=== PATIENT | female | born 1950 | race Caucasian/White ===

== ENCOUNTER 2017-12-21 13:46 | Day surgery (SDC) | payer MEDICARE ==
[~2017-12-21 13:46] MED LIST: CITA20TA4 PO; LISI-360 PO; LORA-474 PO; PERC10TA27 PO; REVL25CA OR
[2017-12-21 14:04] VITALS: BP 178/99; PULSE 62; RESP 20; TEMP 98.3; O2SAT 97
--- NOTE | 2017-12-21 14:57 | RADRPT ---
EXAM DATE/TIME: 12/21/2017 00:00 [facility] COMPARISON : No previous studies available for comparison. INDICATIONS : consult for kyphoplasty OBJECTIVE: Temperature: 98.3 Heart Rate: 62 Blood Pressure: 178/99 Respiratory: 20 Oximetry: 97% PNEUMONIA VACCINE: YES HISTORY OF PRESENT ILLNESS: Modesta is a very pleasant 67-year-old female who presents with progressive severe debilitating lower l umbar pain. She has a history of rectal CA diagnosed in 2010 in remission and multiple myeloma which is well managed. She does not recall a specific event although nodes pain has been significantly wors ening in the past 2 months. She has classic symptoms of pain with ambulation and axial loading reliev ed by supine positioning. She is currently taking oxycodone which she states helped with moderate imp rovement. She rates the pain as 10/10 without medication. Pain has not improved despite this prolonge d nonoperative course of management. She denies any significant new radiculopathy or bowel/urinary in continence. PAST MEDICAL HISTORY : 1. Carcinoma, rectal. 2. Hypertension. 3. Osteoarthritis. 4. multiple myeloma 5. anxiety/depression PAST SURGICAL HISTORY : 1. port placement/removal 2. stem cell transplant 3. polypectomy 4. left breast biopsy SOCIAL HISTORY : No alcohol use. Tobacco; Patient has a ALLERGIES: 1. Sulfarash/hives MEDICATIONS: 1. Prinivil (Lisinopril) 10 mg q.d. 2. mvi q.d. revlamid 10 mg q.d. oxycodone 7.5 mg q.i.d. PHYSICAL EXAMINATION: General: No acute distress Neurological: Grossly intact Back: Mild tenderness on palpation of the L1 and L3 spinous processes IMAGING STUDIES: MRI examination from 12/12/2017 is reviewed. This demonstrates moderate compression deformity at L1 wit h diffuse marrow edema in the superior endplate. There is also subtle bone marrow edema along the inf erior endplate of L3 which in retrospect is also consistent with fracture. ASSESSMENT: 67-year-old female with history of multiple myeloma and subacute debilitating L1 and L3 compression f ractures. She has not improved with prolonged course of nonoperative management. She would be an exce llent candidate for cement augmentation. Kyphoplasty procedure was explained in detail and all questions were answered. PLAN: L1 and L3 kyphoplasty. TIME SPENT: 20 minutes. Nick Good MD on December 21, 2017 at 14:48 Board Certified Radiologist. This report was verified electronically.
== END 2017-12-21 14:54 | disposition home or self-care (01) ==
LOC: HROP 13:46 → HRIP 13:46 → HROP 14:54
PROVIDERS: ATTEND Internal Medicine Hematology & Oncology
DX: M48.56XA Collapsed vertebra, not elsewhere classified, lumbar region, initial encounter for fracture (principal); C90.00 Multiple myeloma not having achieved remission

== ENCOUNTER 2017-12-25 08:47 | Day surgery (SDC) | payer MEDICARE ==
[~2017-12-25] VITALS: Ht 161.3 cm; Wt 48.6 kg
[2017-12-25 09:00] VITALS: BP 191/91; PULSE 68; RESP 20; TEMP 98.2; O2SAT 95
[2017-12-25] MEDS ORDERED: PERC10TA27 PO (09:04)
[2017-12-25] MEDS ORDERED: LORA1TAB12 PO (09:04)
[2017-12-25] MEDS ORDERED: LISI-515 PO (09:04)
[2017-12-25] MEDS ORDERED: LENA10CA (09:04)
[2017-12-25] MEDS ORDERED: ceFAZolin 2 GM PREMIX 50 ML IV SCH (09:15)
[2017-12-25] MEDS ORDERED: SODIUM CHLORID 0.9% 500 ML IV PRN (09:15)
[2017-12-25] MEDS ORDERED: SODIUM CHLOR 0.9% 1000 ML INJ 1,000 ML IV SCH (09:15)
[2017-12-25] MEDS ORDERED: LACTATED RINGER'S 1000 ML IV PRN (09:15)
[2017-12-25 09:28] LABS: AUTOMATED NEUTROPHIL # 2.3 TH/MM3 (1.8-7.7); BASOPHIL % 0.5 % (0.0-2.0); EOSINOPHIL # 0.1 TH/MM3 (0-0.4); EOSINOPHIL % 2.5 % (0.0-4.0); HEMATOCRIT 34.2 % (35.0-46.0); HEMOGLOBIN 12.2 GM/DL (11.6-15.3); LYMPH % 22.2 % (9.0-44.0); LYMPHOCYTE # 0.8 TH/MM3 (1.0-4.8); MEAN CELL VOLUME 97.8 FL (80.0-100.0); MEAN CORPUSCULAR HEMOGLOBIN 34.9 PG (27.0-34.0); MEAN CORPUSCULAR HGB CONC 35.7 % (32.0-36.0); MEAN PLATELET VOLUME 7.7 FL (7.0-11.0); MONO % 14.8 % (0.0-8.0); MONOCYTE # 0.6 TH/MM3 (0-0.9); PLATELET COUNT 180 TH/MM3 (150-450); RED CELL DISTRIBUTION WIDTH 14.4 % (11.6-17.2); WHITE BLOOD COUNT 3.8 TH/MM3 (4.0-11.0)
[2017-12-25 09:43] LABS: BICARBONATE 26.9 MEQ/L (21.0-32.0); CALCIUM 9.2 MG/DL (8.5-10.1); CREATININE 0.6 MG/DL (0.50-1.00)
[2017-12-25] MEDS ORDERED: BUPIVACAINE HCL PF 0.75% 30 ML VIAL ONE (10:27)
[2017-12-25] MEDS ORDERED: MIDAZOLAM HCL 2 MG/2 ML VIAL ONE ×4 (10:29→11:10)
[2017-12-25] MEDS ORDERED: fentaNYL CITRATE 250 MCG/5 ML AMP ONE (10:29)
--- NOTE | 2017-12-25 11:58 | PD.RAD ---
Post Procedure Progress Note Pre Procedure Diagnosis: (1) Compression deformity of vertebra Post Procedure Diagnosis: (1) Compression deformity of vertebra Procedure Date: Dec 25, 2017 Supervising Radiologist: Nick Good Proceduralist/Assist: Go Villegas RT(R), Yeimy Sharp RT(R) Anesthesia: Conscious Sedation Plan of Activity Patient to Unit: ROPU Patient Condition: Good See PACS Report for procedural detail/treatment Nick Good MD Dec 25, 2017 11:58
[2017-12-25 12:05] VITALS: BP 160/95; PULSE 71; RESP 18; TEMP 98.8; O2SAT 92
[2017-12-25 12:20] VITALS: BP 145/78; PULSE 66; RESP 16; O2SAT 100
[2017-12-25 12:50] VITALS: BP 134/81; PULSE 64; RESP 16; O2SAT 100
[2017-12-25 13:20] VITALS: BP 152/75; PULSE 63; RESP 18; O2SAT 100
--- NOTE | 2017-12-25 13:47 | RADRPT ---
EXAM DATE/TIME: 12/25/2017 10:25 [facility] COMPARISON: No previous studies available for comparison. INDICATIONS : History multiple myeloma with subacute dilatation L1 and L3 compression fractures. MEDICAL HISTORY : Multiple myloma Rectal cancer Anxiety Depression, HTN SURGICAL HISTORY : Biopsies Port placement Port removal ENCOUNTER: Initial ACUITY: 2 months PAIN SCORE: 5/10 LOCATION: lower back FLUORO TIME: 10.1 minutes IMAGE SERIES: 8 SEDATION TIME: 50 minutes LEVEL: L1 and L3 1.) 6.5 mg midazolam (Versed) IV 2.) 375 mg fentanyl (Sublimaze) IV PROCEDURE : 1. Fluoroscopically-guided L1 and L3 kyphoplasty. 2. Conscious sedation with continuous EKG and oximetry monitoring. The risks, benefits and alternatives to the procedure were explained and verbal and written consent w as obtained. The site was prepped in sterile fashion. Full sterile technique was used, including ca p, mask, sterile gloves and gown and a large sterile sheet. Hand hygiene and 2% chlorhexidine and/or betadine/alcohol prep was utilized per protocol for cutaneous antisepsis. The skin and subcutaneous tissues were infiltrated with local anesthetic solution. With fluoroscopic guidance via the above described approach access was gained to the vertebral body. Kyphoplasty was performed with cavity creation as above. The prescribed cement volume was placed. Post procedure images demonstrate cement confined to the vertebral body. Conscious sedation was performed with the prescribed dosages and duration as above in the presence of an independent trained radiology nurse to assist in the monitoring of the patient. EKG and oximetry remained stable throughout the procedure. The patient tolerated the procedure well and there were n o complications. The patient was sent to post anesthesia recovery in stable condition. CONCLUSION: 1. Uncomplicated L1 and L3 kyphoplasty, as above. Nick Good MD on December 25, 2017 at 13:45 Board Certified Radiologist. This report was verified electronically.
[2017-12-25] MEDS ORDERED: oxyCODONE/ACETAMINOPHEN 5 MG/325 MG TAB PO ONE (14:00)
[2017-12-25 14:20] VITALS: BP 158/80; PULSE 68; RESP 18; O2SAT 95
--- NOTE | 2017-12-25 18:43 | EKG ---
Date Performed: 12/25/2017 Time Performed: 09:23:43 PTAGE: 67 years EKG: Sinus rhythm POSSIBLE LEFT ATRIAL ENLARGEMENT LEFT VENTRICULAR HYPERTROPHY AND ST-T CHANGE ABNORMAL ECG Since the prior tracing, there has been no significant change PREVIOUS TRACING : 09/14/2011 11.17 DOCTOR: Renata Cameron Interpretating Date/Time 12/25/2017 18:41:27
== END 2017-12-25 14:28 | disposition home or self-care (01) ==
LOC: HROP 08:47 → HRIP 08:50 → HROP 14:28
PROVIDERS: ATTEND Radiology Diagnostic Radiology
DX: S32.019A Unspecified fracture of first lumbar vertebra, initial encounter for closed fracture (principal); S32.039A Unspecified fracture of third lumbar vertebra, initial encounter for closed fracture; C90.00 Multiple myeloma not having achieved remission; I10 Essential (primary) hypertension; Z85.048 Personal history of other malignant neoplasm of rectum, rectosigmoid junction, and anus; Z01.810 Encounter for preprocedural cardiovascular examination; Z01.818 Encounter for other preprocedural examination
CPT/HCPCS: 22514; 22515; 80048; 85025; 85610; 85730; 93005; 99152; 99153; J0690; J2250; J3010; J7030

== ENCOUNTER 2018-01-08 15:34 | Day surgery (SDC) | payer MEDICARE ==
[~2018-01-08 15:34] MED LIST changes: -CITA20TA4 PO; +LENA10CA; -LISI-360 PO; +LISI-515 PO; -LORA-474 PO; +LORA1TAB12 PO; -REVL25CA OR
[2018-01-08 16:09] VITALS: BP 152/88; PULSE 73; RESP 20; TEMP 97.3; O2SAT 97
--- NOTE | 2018-01-10 10:03 | RADRPT ---
EXAM DATE/TIME: 01/08/2018 16:24 [facility] COMPARISON : INDICATIONS : Follow up Kypho OBJECTIVE: Temperature: 97.3 Heart Rate: 73 Blood Pressure: 152/88 Respiratory: 20 Oximetry: 97 PNEUMONIA VACCINE: HISTORY OF PRESENT ILLNESS: 67-year-old female with history of rectal CA and multiple myeloma, both in remission, with debilitati ng L1 and L3 compression fractures. Patient is postop day #14 following L1 and L3 kyphoplasties. Alth ough she reports little improvement in her pain, she admits that she has significantly improved mobil ity and the nature of her pain is now different. She reports pain on initiating movement which improv es following activity. She is able to bend at the waist without significant difficulty. Denies any ra diculopathy or bowel/urinary incontinence. PHYSICAL EXAMINATION: General: No acute distress Neuro: Grossly intact Back: No significant tenderness on palpation of the spinous processes. ASSESSMENT: 67-year-old female status post L1 and L3 kyphoplasties with persistent lower back pain which appears to be facet joint related. PLAN: Will obtain an MRI of the lumbar spine to insure she has not developed in interval adjacent level com pression fracture and reassess the facet joints. Tentative plan for therapeutic facet joint injection s. TIME SPENT: 30 minutes Nick Good MD on January 10, 2018 at 9:48 Board Certified Radiologist. This report was verified electronically.
== END 2018-01-08 16:50 | disposition home or self-care (01) ==
LOC: HROP 15:34 → HRIP 15:35 → HROP 16:50
PROVIDERS: ATTEND Radiology Diagnostic Radiology
DX: S32.019D Unspecified fracture of first lumbar vertebra, subsequent encounter for fracture with routine healing (principal); S32.039D Unspecified fracture of third lumbar vertebra, subsequent encounter for fracture with routine healing; W19.XXXD Unspecified fall, subsequent encounter; C90.01 Multiple myeloma in remission; I10 Essential (primary) hypertension; Z85.048 Personal history of other malignant neoplasm of rectum, rectosigmoid junction, and anus

== ENCOUNTER 2018-01-16 06:35 | Day surgery (SDC) | payer MEDICARE ==
[~2018-01-16] VITALS: Ht 160 cm; Wt 48.0 kg
[~2018-01-16 06:35] MED LIST changes: -LENA10CA; +LENA10CA PO
[2018-01-16 07:00] VITALS: BP 144/75; PULSE 65; RESP 18; TEMP 98.3; O2SAT 96
[2018-01-16 07:23] LABS: AUTOMATED NEUTROPHIL # 2.2 TH/MM3 (1.8-7.7); BASOPHIL % 0.7 % (0.0-2.0); EOSINOPHIL % 0.6 % (0.0-4.0); HEMATOCRIT 33.5 % (35.0-46.0); HEMOGLOBIN 11.8 GM/DL (11.6-15.3); LYMPH % 18.7 % (9.0-44.0); LYMPHOCYTE # 0.7 TH/MM3 (1.0-4.8); MEAN CELL VOLUME 97.1 FL (80.0-100.0); MEAN CORPUSCULAR HEMOGLOBIN 34.2 PG (27.0-34.0); MEAN CORPUSCULAR HGB CONC 35.2 % (32.0-36.0); MEAN PLATELET VOLUME 7.1 FL (7.0-11.0); MONO % 18.6 % (0.0-8.0); MONOCYTE # 0.7 TH/MM3 (0-0.9); NEUT % 61.4 % (16.0-70.0); PLATELET COUNT 241 TH/MM3 (150-450); RED BLOOD COUNT 3.45 MIL/MM3 (4.00-5.30); RED CELL DISTRIBUTION WIDTH 13.9 % (11.6-17.2); WHITE BLOOD COUNT 3.6 TH/MM3 (4.0-11.0)
[2018-01-16 07:30] LABS: PROTHROMBIN TIME - PATIENT 10.3 SEC (9.8-11.6)
[2018-01-16] MEDS ORDERED: IMPLANTED VASCULAR ACCESS PORT - SODIUM CHLORIDE FLUSH IV FLUSH SCH (07:30)
[2018-01-16] MEDS ORDERED: SODIUM CHLOR 0.9% 1000 ML INJ 1,000 ML IV SCH (07:30)
[2018-01-16] MEDS ORDERED: ceFAZolin 2 GM PREMIX 50 ML IV SCH (07:30)
[2018-01-16] MEDS ORDERED: fentaNYL CITRATE 250 MCG/5 ML AMP ONE (07:44)
[2018-01-16] MEDS ORDERED: MIDAZOLAM HCL 5 MG/5 ML VIAL ONE (07:44)
[2018-01-16] MEDS ORDERED: MIDAZOLAM HCL 2 MG/2 ML VIAL ONE (08:43)
[2018-01-16 09:25] VITALS: BP 121/75; PULSE 68; RESP 18; TEMP 98.1; O2SAT 98
[2018-01-16 09:40] VITALS: BP 121/57; PULSE 54; RESP 18; O2SAT 93
--- NOTE | 2018-01-16 09:53 | PD.RAD ---
Post Procedure Progress Note Pre Procedure Diagnosis: (1) Compression deformity of vertebra Post Procedure Diagnosis: (1) Compression deformity of vertebra Procedure Date: Jan 16, 2018 Supervising Radiologist: Nick Good Proceduralist/Assist: Go Villegas RT(R), RT Godwin(R) Anesthesia: Conscious Sedation Plan of Activity Patient to Unit: ROPU Patient Condition: Good See PACS Report for procedural detail/treatment Nick Good MD Jan 16, 2018 09:53
[2018-01-16 09:55] VITALS: BP 113/68; PULSE 68; RESP 16; O2SAT 98
[2018-01-16 10:25] VITALS: BP 106/69; PULSE 68; RESP 16; O2SAT 97
--- NOTE | 2018-01-16 11:41 | RADRPT ---
EXAM DATE/TIME: 01/16/2018 06:45 [facility] COMPARISON: KYPHOPLASTY, FLUORO GUIDED, December 25, 2017, 10:25. INDICATIONS : History of multiple myeloma in remission with painful subacute T12 compression fracture. Patient pres ents for kyphoplasty. MEDICAL HISTORY : Multiple myloma Rectal cancer Anxiety Depression HTN SURGICAL HISTORY : Biopsies Port placement Port removal ENCOUNTER: Subsequent ACUITY: 3 months PAIN SCORE: 4/10 LOCATION: Lower back and right side flank pain. FLUORO TIME: 8.5 minutes IMAGE SERIES: 0 SEDATION TIME: 60 minutes LEVEL: T12 MEDICATION(S): 1.) 5 mg midazolam (Versed) IV 2.) 250 mcg fentanyl (Sublimaze) IV DEVICE: 1. 4 cc AVAMax bone cement PROCEDURE : 1. Fluoroscopically-guided kyphoplasty. 2. Conscious sedation with continuous EKG and oximetry monitoring. The risks, benefits and alternatives to the procedure were explained and verbal and written consent w as obtained. The site was prepped in sterile fashion. Full sterile technique was used, including ca p, mask, sterile gloves and gown and a large sterile sheet. Hand hygiene and 2% chlorhexidine and/or betadine/alcohol prep was utilized per protocol for cutaneous antisepsis. The skin and subcutaneous tissues were infiltrated with local anesthetic solution. With fluoroscopic guidance via the above described approach access was gained to the vertebral body. Kyphoplasty was performed with cavity creation as above. The prescribed cement volume was placed. Post procedure images demonstrate cement confined to the vertebral body. Conscious sedation was performed with the prescribed dosages and duration as above in the presence of an independent trained radiology nurse to assist in the monitoring of the patient. EKG and oximetry remained stable throughout the procedure. The patient tolerated the procedure well and there were n o complications. The patient was sent to post anesthesia recovery in stable condition. CONCLUSION: Uncomplicated T12 kyphoplasty as above. Nick Good MD on January 16, 2018 at 11:32 Board Certified Radiologist. This report was verified electronically.
[2018-01-16 12:00] VITALS: BP 115/68; PULSE 68; RESP 16; O2SAT 97
== END 2018-01-16 12:10 | disposition home or self-care (01) ==
LOC: HROP 06:35 → HRIP 06:39 → HROP 12:10
PROVIDERS: ATTEND Internal Medicine Hematology & Oncology
DX: S22.080A Wedge compression fracture of T11-T12 vertebra, initial encounter for closed fracture (principal); C90.01 Multiple myeloma in remission
CPT/HCPCS: 22513; 85025; 85610; 85730; 99152; 99153; J0690; J2250; J3010; J7030

== ENCOUNTER 2018-01-25 14:15 | Day surgery (SDC) | payer MEDICARE | END 2018-01-25 15:00 | disposition home or self-care (01) | LOC: HROP 14:15 → HRIP 14:18 → HROP 15:00 | PROVIDERS: ATTEND Radiology Diagnostic Radiology | DX: Z48.89 Encounter for other specified surgical aftercare (principal) ==

== ENCOUNTER 2018-03-07 09:27 | Day surgery (SDC) | payer MEDICARE ==
[~2018-03-07] VITALS: Ht 152.4 cm; Wt 46.4 kg
[2018-03-07 09:45] VITALS: BP 135/69; PULSE 74; RESP 18; TEMP 97.8; O2SAT 99
[2018-03-07] MEDS ORDERED: CHLORHEXIDINE GLUCONATE 2 % 1 PACK (2 CLOTHS) TOPICAL PRN (10:15)
[2018-03-07] MEDS ORDERED: SODIUM CHLOR 0.9% 1000 ML INJ 1,000 ML IV SCH (10:15)
[2018-03-07] MEDS ORDERED: POVIDONE IODINE 5% (ANTISEPSIS KIT) 4 APPLICATIONS EACH NARE PRN (10:15)
[2018-03-07] MEDS ORDERED: LACTATED RINGER'S 1000 ML IV PRN (10:15)
[2018-03-07] MEDS ORDERED: METOPROLOL TARTRATE 25 MG TAB PO PRN (10:15)
[2018-03-07] MEDS ORDERED: SODIUM CHLORID 0.9% 500 ML IV PRN (10:15)
[2018-03-07 10:28] LABS: AUTOMATED NEUTROPHIL # 1.5 TH/MM3 (1.8-7.7); BASOPHIL % 0.9 % (0.0-2.0); EOSINOPHIL % 1.6 % (0.0-4.0); HEMATOCRIT 34.1 % (35.0-46.0); LYMPH % 27.3 % (9.0-44.0); LYMPHOCYTE # 0.8 TH/MM3 (1.0-4.8); MEAN CELL VOLUME 97.9 FL (80.0-100.0); MEAN CORPUSCULAR HEMOGLOBIN 34.5 PG (27.0-34.0); MEAN CORPUSCULAR HGB CONC 35.2 % (32.0-36.0); MONO % 18.9 % (0.0-8.0); MONOCYTE # 0.5 TH/MM3 (0-0.9); NEUT % 51.3 % (16.0-70.0); PLATELET COUNT 206 TH/MM3 (150-450); RED BLOOD COUNT 3.48 MIL/MM3 (4.00-5.30); RED CELL DISTRIBUTION WIDTH 14.4 % (11.6-17.2); WHITE BLOOD COUNT 2.9 TH/MM3 (4.0-11.0)
[2018-03-07 10:30] LABS: PROTHROMBIN TIME - PATIENT 10.5 SEC (9.8-11.6)
[2018-03-07] MEDS ORDERED: ceFAZolin 2 GM PREMIX 50 ML ONE (11:14)
--- NOTE | 2018-03-07 12:40 | PD.RAD ---
Post Procedure Progress Note Pre Procedure Diagnosis: (1) Compression deformity of vertebra Post Procedure Diagnosis: (1) Compression deformity of vertebra Procedure Date: March 07, 2018 Supervising Radiologist: Nick Good Proceduralist/Assist: Flaquito Henderson, RT(R), Yeimy Sharp RT(R) Anesthesia: General Plan of Activity Patient to Unit: PACU Patient Condition: Good See PACS Report for procedural detail/treatment Nick Good MD March 07, 2018 12:40
[2018-03-07] MEDS ORDERED: MIDAZOLAM HCL 2 MG/2 ML VIAL ONE (12:47)
[2018-03-07] MEDS ORDERED: *ONDANSETRON 4 MG VIAL PERIprocedural Use ONLY ONE (12:48)
[2018-03-07] MEDS ORDERED: DO NOT ADM ANY ANTICOAGULANT DRUGS PRN (13:00)
[2018-03-07] MEDS ORDERED: MORPHINE SULFATE 4 MG/ML INJ ONE (13:07)
[2018-03-07 13:25] VITALS: BP 131/67; PULSE 70; PULSE 72; RESP 18; TEMP 97.3; O2SAT 90; O2SAT 93
--- NOTE | 2018-03-07 13:31 | RADRPT ---
EXAM DATE/TIME: 03/07/2018 11:27 [facility] COMPARISON: KYPHOPLASTY, FLUORO GUIDED, March 07, 2018, 0:00. INDICATIONS : 67 year-old female with history of multiple myeloma and multiple recurrent compression fractures. Her multiple myeloma is reportedly in remission. Patient again presents with painful T10 and T11 fractur es. Plan is for cement augmentation with biopsy given the recurrent fractures. MEDICAL HISTORY : Multiple myeloma Rectal cancer Anxiety Depression HTN Chronic pain SURGICAL HISTORY : Biopsies Port placement Port removal Kyphoplasty T12, L1, L3 Excision of rectal lesion ENCOUNTER: Initial ACUITY: 4-6 months PAIN SCORE: 2/10 LOCATION: Lower back FLUORO TIME: 11.2 minutes IMAGE SERIES: 10 LEVEL: T10 T 11 DEVICE: 1. 8 cc VertaPlex HV bone cement Anesthesia and pain control was provided by the Anesthesia department. PROCEDURE : 1. Fluoroscopically-guided kyphoplasty. 2. Fluoroscopic guided biopsy The risks, benefits and alternatives to the procedure were explained and verbal and written consent w as obtained. The site was prepped in sterile fashion. Full sterile technique was used, including ca p, mask, sterile gloves and gown and a large sterile sheet. Hand hygiene and 2% chlorhexidine and/or betadine/alcohol prep was utilized per protocol for cutaneous antisepsis. The skin and subcutaneous tissues were infiltrated with local anesthetic solution. Trocar needles were advanced into the T10 and T11 vertebral bodies utilizing single unipedicular appr oach. Biopsy was performed at both levels. Kyphoplasty was performed with cavity creation as above. The prescribed cement volume was placed. Post procedure images demonstrate cement confined to the ve rtebral body. Patient tolerated the procedure well and there were no immediate postprocedural complications. CONCLUSION: 1. Uncomplicated T10 and T11 biopsy and kyphoplasty, as above. Nick Good MD on March 07, 2018 at 13:10 Board Certified Radiologist. This report was verified electronically.
[2018-03-07 13:40] VITALS: BP 124/59; PULSE 70; RESP 18; O2SAT 94
[2018-03-07 13:55] VITALS: BP 107/54; PULSE 68; RESP 18; O2SAT 98
== END 2018-03-07 15:45 | disposition home or self-care (01) ==
LOC: HROP 09:27 → HRIP 09:28 → HROP 15:45
PROVIDERS: ATTEND Radiology Diagnostic Radiology
DX: S22.080A Wedge compression fracture of T11-T12 vertebra, initial encounter for closed fracture (principal); C90.01 Multiple myeloma in remission; I10 Essential (primary) hypertension; M54.9 Dorsalgia, unspecified; G89.29 Other chronic pain; Z85.048 Personal history of other malignant neoplasm of rectum, rectosigmoid junction, and anus
CPT/HCPCS: 01936; 22513; 22515; 85025; 85610; 85730; 88173; 88304; 88305; 88341; 88342; J0690; J2250; J2270; J2405; J3010; J7030; 88307